=== PATIENT | female | born 1995 | race African-American/Black ===

== ENCOUNTER 2024-06-15 14:24 | Emergency (ER) | payer OTHER, SELFPAY ==
--- NOTE | ~2024-06-15 | CT_ITS ---
CLINICAL HISTORY: RLQ pain r o appey CT abdomen and pelvis with contrast Comparison: None Findings: The lung bases are clear. Unremarkable gallbladder and solid organs. No urolithiasis. No bowel obstruction, pneumoperitoneum, or pneumatosis. Normal appendix. A 5.8 cm thick walled right adnexal cyst with internal septation. No acute fracture. IMPRESSION: No acute findings. Normal appendix. A 5.8 cm thick walled right adnexal cyst with internal septation. A pelvic ultrasound is recommended for further evaluation. This document has been electronically signed by: Brandi Lopes MD on 06/15/2024 20:17:46
--- NOTE | ~2024-06-15 | US_ITS ---
CLINICAL HISTORY: pelvic pain, r lg complex cyst, r o torsion US pelvis transabdominal and transvaginal with Doppler Comparison: CT/SR - CT ABDOMEN PELVIS W IV CON - 06/15/24 19:31 EST Findings: Transabdominal scanning performed for overall anatomy. Transvaginal scanning performed for additional detail. Anteverted uterus is 8.9 cm length. Normal myometrium. No endometrial lesion, 12 mm thickness. Right ovary 5.5 x 3.4 x 4.1 cm, corresponds to a volume of 40.1 mL. A complex cyst with internal septation measuring 4.5 x 3.0 x 3.4 cm with lace-like internal echogenicity. Left ovary 2.3 x 1.0 x 1.5 cm, corresponds to a volume of 1.8 mL.. Normal color Doppler with arterial/venous spectral tracing of [both ovaries. Small free fluid. IMPRESSION: 1. Right ovarian 4.5 cm complex cyst with lace-like internal echogenicity likely represent a involuting hemorrhagic cyst. no evidence of ovarian torsion. 6-12 weeks follow-up ultrasound is recommended for further evaluation. This document has been electronically signed by: Brandi Lopes MD on 06/15/2024 22:38:32
[2024-06-15 14:51] VITALS: BP 107/63; PULSE 81; RESP 16; TEMP 36.6; O2SAT 98; BMI 23.8
--- NOTE | 2024-06-15 14:59 | ED.ABDPAIN ---
HPI - Abdominal Pain General Chief Complaint: Abdominal Pain Stated Complaint: abd pain Time Seen by Provider: 06/15/24 17:08 Source: patient Limitations: no limitations History of Present Illness ED Provider: Mirtha Law PA-C HPI narrative: 28-year-old female with a history of ovarian cysts presents with right lower quadrant pain x1 day. Patient developed symptoms overnight, the pain is focal to the right lower abdomen, is nonradiating, described as a constant ache. Pain worse with movement. Reduced appetite and nausea, denies vomiting, fever. Denies dysuria, history of kidney stones, new vaginal discharge or risk for STD. Denies diarrhea or constipation. Related Data Previous Rx's ?Medication ?Instructions ?Recorded ketorolac 10 mg tablet 10 mg PO Q6H PRN pain #20 tabs 06/15/24 Allergies Allergy/AdvReac Type Severity Reaction Status Date / Time ondansetron Allergy Unknown UNKNOWN Verified 06/15/24 14:54 [From ZOFRAN ( HYDROCHLORIDE)] Review of Systems Review of Systems Yes all other systems are reviewed and are negative Constitutional: Denies fatigue, Denies fever(s) and Reports poor appetite Cardiovascular: Reports chest pain and Denies dyspnea Respiratory: Denies cough and Denies dyspnea Gastrointestinal: Reports abdominal pain, Denies nausea and Denies vomiting Genitourinary: Denies dysuria, Denies pelvic pain and Denies vaginal discharge Endocrine: Denies fatigue PMFSH Past Medical History Attestation statement: The following information was validated with the patient. Social History Social History Advance Directives: No Advance Directives Information Provided: No Physical Exam ED Vital Signs: Vital Signs - 24 hr 06/15/24 14:51 06/15/24 15:54 06/15/24 18:29 Temperature 97.9 F 98.8 F 98.3 F Pulse Rate 81 84 73 Respiratory Rate 16 16 16 Blood Pressure 107/63 110/68 112/68 Pulse Oximetry 98 100 100 Oxygen Delivery Method Room Air Room Air Room Air 06/15/24 20:31 Temperature 99.0 F Pulse Rate 61 Respiratory Rate 16 Blood Pressure 102/47 L Pulse Oximetry 98 Oxygen Delivery Method Room Air BMI result Body Mass Index 23.8 Const Other: Alert, appears uncomfortable Orientation/consciousness: patient oriented x3 Resp Effort & Inspection: normal respiratory effort Cardio Other: Normal peripheral perfusion GI Other: Abdomen is soft, nondistended, moderate tenderness suprapubic and right lower quadrant, without guarding, there was some degree of referred pain from left abdomen to right, Other: Deferring for now Skin Other: Warm dry no rash Neuro General: patient oriented x3, gait normal, no focal motor deficits and CN's II-XI intact bilaterally Psych Other: Cooperative Course Course Course Narrative: This is a Rapid Medical Examination (RME) performed by Sumeet Valdez PA-C in triage. Full HPI, ROS, assessment and treatment plan per primary provider in the Main ED. 28 yo female here from for r/o appy. reports RLQ abd pain, dull at rest, sharp w/ movement which began last night. decreased appetitie. no N/V. no urinary symptoms or vaginal discharge/bleeding. lmp this month. +TTP of RLQ w/ guarding. no rebound. negative rovsing. Plan: labs, UA, will need imaging Reevaluation(s) Reevaluation #1: Discussed ultrasound findings with the patient, she has good follow up with her childcare provider, she will be calling tomorrow to make an appointment. The Toradol was helpful in alleviating her discomfort. Medical Decision Making Medical Decision Making [facility] Narrative: 28-year-old female with a history of ovarian cysts presents with right lower quadrant pain x1 day. Patient developed symptoms overnight, the pain is focal to the right lower abdomen, is nonradiating, described as a constant ache. Pain worse with movement. Reduced appetite with nausea, denies vomiting, fever. Denies dysuria, history of kidney stones, new vaginal discharge or risk for STD. Denies diarrhea or constipation. Problem: Ovarian cyst History: Per patient I have considered the following differential diagnoses: Ovarian cyst, torsion, appendicitis, renal colic, UTI, TOA , cervicitis, ectopic Plan: Screening labs and a CT scan of the abdomen to rule out appendicitis obtained from triage. She does have focal right lower quadrant pain, however this could also be torsion. And she has a history of cysts. I have already discussed with the patient that if the CT scan is negative she will likely have a transvaginal ultrasound. Ordering pain medication and IV fluid. The patient has no risk factors for STD, and has no vaginal discharge, to suggest infectious source for her discomfort. Thought about ectopic, however she is not . I have independently reviewed the following tests: Labs: No leukocytosis, not anemic, no electrolyte abnormality, not , urine not infected A CT abdomen and pelvis:Normal appendix. A 5.8 cm thick walled right adnexal cyst with internal septation. No acute fracture. IMPRESSION: No acute findings. Normal appendix. A 5.8 cm thick walled right adnexal cyst with internal septation. A pelvic ultrasound is recommended for further evaluation. This document has been electronically signed by: Brandi Lopes MD on 06/15/2024 20:17:46 Transvaginal ultrasound: Lab Data 06/15/24 15:53 06/15/24 15:53 Labs: Lab Results 06/15/24 06/15/24 Range/Units 15:53 16:20 WBC 6.9 (4.8-10.8) X10*3/uL RBC 4.44 (4.20-5.50) X10*6/uL Hgb 11.0 L (12.0-16.0) g/dl Hct 35.8 L (37.0-47.0) % MCV 80.6 (80.0-98.0) fL MCH 24.8 L (27.0-33.0) pg MCHC 30.7 L (31.0-35.0) g/dl RDW 16.2 H (11.0-16.0) % Plt Count 283 (160-400) X10*3/uL MPV 9.6 (9.4-12.3) fL Immature Gran % (Auto) 0.1 (0.0-0.4) % Neut % (Auto) 55.0 (45-73) % Lymph % (Auto) 34.5 (20-40) % [place] % (Auto) 7.3 (2-11) % Eos % (Auto) 2.8 (0-4) % Baso % (Auto) 0.3 (0-2) % Lymph # (Auto) 2.4 (1.2-4.9) X10*3/uL [place] # (Auto) 0.5 (0.1-1.2) X10*3/uL Eos # (Auto) 0.2 (0.0-0.4) X10*3/uL Baso # (Auto) 0.0 (0.0-0.2) X10*3/uL Abs Immat Gran (auto) 0.01 (0.00-0.03) X10*3/uL Absolute Neuts (auto) 3.8 (2.0-8.3) x10*3/uL Absolute Nucleated RBC 0.000 (0.0-0.012) X10*3/uL Nucleated RBC % (auto) 0.0 (0.0-0.2) /100WBC Sodium 139 (135-145) mmol/L Potassium 4.0 (3.3-5.1) mmol/L Chloride 109 H (96-108) mmol/L Carbon Dioxide 24 (22-29) mmol/L Anion Gap 10 L (12-20) BUN 13 (9-16) mg/dL Creatinine 0.80 (0.5-1.4) mg/dL Estim Creat Clear Calc 88.7 Estimated GFR > 60 Random Glucose 82 (60-115) mg/dL Calcium 9.4 (8.4-10.2) mg/dL Magnesium 2.0 (1.6-2.6) mg/dL Total Bilirubin 0.2 (0.0-1.0) mg/dL AST 23 (5-31) U/L ALT 20 (0-31) U/L Alkaline Phosphatase 46 (39-117) U/L C-Reactive Protein 0.14 (< or = 0.50) mg/dL Total Protein 7.8 (6.5-8.0) g/dL Albumin 4.4 (3.5-5.0) g/dL Lipase 33 (8-78) U/L Beta HCG, Quant < 2 mIU/mL Urine Color Yellow Urine Appearance Clear Urine pH 7.0 (5.0-9.0) Ur Specific [place] 1.015 (1.005-1.025) Urine Protein Negative (Neg-Trace) mg/dL Urine Glucose (UA) Negative (Negative) mg/dL Urine Ketones Negative (Negative) mg/dL Urine Blood Negative (Negative) Urine Nitrite Negative (Negative) Ur Leukocyte Esterase Negative (Negative) Urine Test NEGATIVE (NEGATIVE) Medications Administered Discontinued Medications Generic Name Dose Route Start Last Admin Trade Name Freq PRN Reason Stop Dose Admin Sodium Chloride 500 mls @ 500 mls/hr 06/15/24 17:30 06/15/24 18:45 Ns IV 06/15/24 18:29 Infused .Q1H ONE Infusion Iohexol 100 ml 06/15/24 19:35 06/15/24 19:35 Iohexol 350 Mg/Ml 100 Ml Infus..Btl IV 06/15/24 19:36 85 ml ONCE ONE Administration Ketorolac Tromethamine 15 mg 06/15/24 20:59 06/15/24 21:22 Ketorolac Tromethamine 15 Mg/Ml Vial IVPUSH 06/15/24 21:00 15 mg ONCE ONE Administration Metoclopramide HCl 10 mg 06/15/24 17:30 06/15/24 17:46 Metoclopramide Hcl 10 Mg/2 Ml Vial IVPUSH 06/15/24 17:31 10 mg ONCE ONE Administration Morphine Sulfate 4 mg 06/15/24 17:30 06/15/24 17:46 Morphine Sulfate 4 Mg/Ml Cartridge IVPUSH 06/15/24 17:31 4 mg ONCE ONE Administration Protocol Discharge Plan Discharge Clinical Impression: Hemorrhagic cyst of right ovary Patient Disposition: Home, Self-Care Instructions: Ovarian Cyst (ED) Additional Instructions: All of your screening labs were normal. The CT scan of your abdomen was negative for appendicitis. You were found to have a 4.5 cm hemorrhagic cyst on the right. You need close follow up with your childcare provider, call tomorrow to make an appointment. Use the ketorolac as needed for discomfort, take it with food. Return precautions for worsening right lower abdominal pain, intractable vomiting, fever or dizziness. Prescriptions: New ketorolac 10 mg tablet 10 mg PO Q6H PRN (Reason: pain) Qty: 20 0RF Rx Instructions: maximum total duration of 5 days from all oral, intranasal, or parenteral formulations. The patient received an IV dose of Toradol here in the emergency department. Stand Alone Forms: Work/School Release Print Language: Kyrgyz
[2024-06-15 15:54] VITALS: BP 110/68; PULSE 84; RESP 16; TEMP 37.1; O2SAT 100
[2024-06-15 15:59] LABS: MANUAL DIFF FLAG NO
[2024-06-15 16:01] LABS: Basophils Percent Auto 0.3 % (0-2); Eosinophils Absolute Auto 0.2 X10*3/uL (0.0-0.4); Eosinophils Percent Auto 2.8 % (0-4); Hematocrit 35.8 % (37.0-47.0); Imm Gran Abs Auto 0.01 X10*3/uL (0.00-0.03); Imm Gran Pct Auto 0.1 % (0.0-0.4); Lymphocytes Absolute Auto 2.4 X10*3/uL (1.2-4.9); Lymphocytes Percent Auto 34.5 % (20-40); Mean Corpuscular HGB Conc 30.7 g/dl (31.0-35.0); Mean Corpuscular Hemoglobin 24.8 pg (27.0-33.0); Mean Corpuscular Volume 80.6 fL (80.0-98.0); Mean Platelet Volume 9.6 fL (9.4-12.3); Monocytes Absolute Auto 0.5 X10*3/uL (0.1-1.2); Monocytes Percent Auto 7.3 % (2-11); Neutrophils Absolute Auto 3.8 x10*3/uL (2.0-8.3); Platelet Count 283 X10*3/uL (160-400); Red Blood Count 4.44 X10*6/uL (4.20-5.50); Red Cell Distribution Width 16.2 % (11.0-16.0); White Blood Count 6.9 X10*3/uL (4.8-10.8)
[2024-06-15 16:54] LABS: Appearance Urine Clear; Color Urine Yellow; Glucose Urine UA Negative (Negative); Leukocyte Esterase Urine Negative (Negative); Nitrite Urine Negative (Negative); Specific Gravity - Urine 1.015 (1.005-1.025); Urine Blood Negative (Negative); Urine Ketones Negative (Negative); Urine Protein Negative (Neg-Trace)
[2024-06-15 16:55] LABS: Alanine Aminotransferase 20 U/L (0-31); Albumin Level 4.4 g/dL (3.5-5.0); Anion Gap 10 (12-20); Aspartate Amino Transferase 23 U/L (5-31); Bilirubin Total 0.2 mg/dL (0.0-1.0); Blood Urea Nitrogen 13 mg/dL (9-16); C Reactive Protein 0.14 mg/dL (< or = 0.50); Calcium 9.4 mg/dL (8.4-10.2); Carbon Dioxide 24 mmol/L (22-29); Chloride 109 mmol/L (96-108); Creatinine Clr Calc Pharmacy 88.7; Estimated Glomerular Filt Rate > 60; Glucose Random 82 mg/dL (60-115); Lipase 33 U/L (8-78); Sodium 139 mmol/L (135-145); Total Protein 7.8 g/dL (6.5-8.0)
[2024-06-15] MEDS: 0.9 % Sodium Chloride 500 ML IV (17:46)
[2024-06-15] MEDS: Morphine Sulfate 4 MG/ML CARTRIDGE IVPUSH (17:46)
[2024-06-15] MEDS: Metoclopramide HCl 10 MG/2 ML VIAL IVPUSH (17:46)
[2024-06-15 18:29] VITALS: BP 112/68; PULSE 73; RESP 16; TEMP 36.8; O2SAT 100
[2024-06-15 18:59] LABS: Alkaline Phosphatase 46 U/L (39-117)
[2024-06-15 19:04] LABS: UPreg QC Valid YES; Urine Pregnancy NEGATIVE (NEGATIVE)
[2024-06-15 19:04] LABS: HCG Quantitative < 2 mIU/mL
[2024-06-15] MEDS: iohexoL 350 MG/ML 100 ML INFUS..BTL IV (19:35)
[2024-06-15 20:31] VITALS: BP 102/47; PULSE 61; RESP 16; TEMP 37.2; O2SAT 98
[2024-06-15] MEDS: Ketorolac Tromethamine 15 MG/ML VIAL IVPUSH (21:22)
[2024-06-15 23:37] VITALS: BP 98/56; PULSE 77; RESP 16; TEMP 37.2; O2SAT 99
[2024-06-15 23:41] VITALS: BP 98/56; PULSE 77; RESP 16; TEMP 37.2; O2SAT 99
== END 2024-06-15 23:49 | disposition home or self-care (01) ==
PROVIDERS: Physician Assistant Medical; Emergency Provider Emergency Medicine
DX: N83.201 Unspecified ovarian cyst, right side (principal); R10.31 Right lower quadrant pain; R11.2 Nausea with vomiting, unspecified; R10.2 Pelvic and perineal pain; N89.8 Other specified noninflammatory disorders of vagina; Z79.899 Other long term (current) drug therapy
CPT/HCPCS: 36415; 74177; 76830; 76856; 80053; 81003; 81025; 83690; 83735; 84702; 85025; 86140; 93975; 96361; 96374; 96375; 99284; 99285; J1885; J2270; J2765; Q9967

== ENCOUNTER → 2024-06-15 17:06 | Outpatient (BNV) | payer OTHER, SELFPAY | PROVIDERS: Emergency Provider Emergency Medicine; Visit Provider Student in an Organized Health Care Education/Training Program | DX: N83.291 Other ovarian cyst, right side (principal) | CPT/HCPCS: 74177 ==